=== PATIENT | male | born 1985 | race Caucasian/White ===

== ENCOUNTER 2025-06-08 18:23 | Emergency (ER) | payer BC ==
[~2025-06-08] VITALS: Ht 188 cm; Wt 90.7 kg
[2025-06-08 18:39] VITALS: BP 129/72; TEMP 98.4; O2SAT 99
== END 2025-06-08 19:11 | disposition home or self-care (01) ==
LOC: ER 18:33
DX: L05.01 Pilonidal cyst with abscess (principal); R50.9 Fever, unspecified; Z88.1 Allergy status to other antibiotic agents